=== PATIENT | male | born 1960 | race Caucasian/White ===

== ENCOUNTER 2024-08-05 10:00 | Outpatient (CLI) | payer MEDICARE, SELFPAY ==
--- NOTE | 2024-08-05 10:05 | XR_ITS ---
FINAL REPORT CLINICAL HISTORY: Rt Knee pain COMPARISON: None FINDINGS: RIGHT KNEE 3 views of the right knee were obtained. There is no acute fracture or dislocation. There is mild tricompartmental degenerative change. Soft tissues are unremarkable. IMPRESSION: Degenerative change without acute bony abnormality. Reviewed, Interpreted and Dictated by Anabell Navarro MD Transcribed by Deysi Marie Authenticated and [facility]
--- NOTE | 2024-08-05 10:13 | XR_ITS ---
FINAL REPORT CLINICAL HISTORY: left knee pain COMPARISON: None FINDINGS: LEFT KNEE 3 views of the left knee were obtained. There is no acute fracture or dislocation. There is mild tricompartmental degenerative change. A small joint effusion is noted. Soft tissues are unremarkable. IMPRESSION: Mild degenerative change and small joint effusion. No acute bony abnormality. Reviewed, Interpreted and Dictated by Anabell Navarro MD Transcribed by Deysi Marie Authenticated and [facility]
== END 2024-08-05 23:59 | disposition home or self-care (01) ==
LOC: RAD 10:03
PROVIDERS: PCP Nurse Practitioner Family; Visit Provider Physician Assistant
DX: M25.561 Pain in right knee (principal); M25.562 Pain in left knee
CPT/HCPCS: 73562